=== PATIENT | female | born 1965 | race Caucasian/White ===

== ENCOUNTER → 2017-05-28 | Outpatient (CLI) | payer BC ==
[~2017-05-28] MED LIST: K-DUR20 MEQ PO; KENALOG0.1% TP; LEVOFLOXACIN500 MG PO; LUVOX CR150 MG PO; MIDRIN (DURADR1 CAP PO; PHENERGAN25 M1 PO; PRILOSEC20 MG PO; ULTRAM50 MG PO; VICODIN ES 7501 TAB PO; VOLTAREN75 MG PO
== END | disposition home or self-care (01) ==
LOC: RAD 13:47
DX: M25.511 Pain in right shoulder (principal); R20.2 Paresthesia of skin

== ENCOUNTER 2018-10-07 20:33 | Inpatient (IN) | payer BC ==
[~2018-10-07] VITALS: Ht 152.4 cm; Wt 78.6 kg
[2018-10-07] VITALS (10 sets, daily range): BP systolic 93–130; BP diastolic 32–75
--- NOTE | ~2018-10-07 | EKG ---
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
--- NOTE | ~2018-10-07 | EKG ---
[place], [place] ELECTROCARDIOGRAM REPORT NAME: BLAZE HE UNIT #: [id number] ROOM: 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
--- NOTE | ~2018-10-07 | EKG ---
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
[~2018-10-07 20:33] MED LIST changes: +VOLTAREN100 GM T; -VOLTAREN75 MG PO
[2018-10-07 21:40] LABS: BASO # 0.1 10*3/uL (0.0-0.1); BASO % 0.7 % (0.0-1.0); EOS % 0.2 % (1.0-4.0); HEMOGLOBIN 16.9 g/dl (12.0-16.0); LYMPH # 3.9 10*3/uL (1.3-4.4); LYMPH % 39.5 % (27.0-41.0); MEAN CELL VOLUME 89.3 fl (81.0-99.0); MEAN CORPUSCULAR HGB 30.2 pg (27.0-31.0); MEAN CORPUSCULAR HGB CONC 33.8 g/dl (33.0-37.0); MEAN PLATELET VOLUME 9.5 fl (9.6-12.3); MONO # 0.7 10*3/uL (0.1-1.0); MONO % 7.5 % (3.0-9.0); NEUT # 5.1 10*3/uL (2.3-7.9); NEUT % 51.7 % (47.0-73.0); PLATELET COUNT AUTOMATED 281 10*3/uL (130-400); RED CELL DISTRI WIDTH 13.2 % (0-14.5); WHITE BLOOD COUNT 9.8 10*3/uL (4.8-10.8)
[2018-10-07 21:56] LABS: ALBUMIN 3.4 gm/dl (3.1-4.5); ALKALINE PHOSPHATASE 142 U/L (45-117); BUN 13 mg/dl (7-24); CHLORIDE 102 mmol/L (98-107); CREATININE 0.72 mg/dL (0.55-1.02); LIPASE 186 U/L (73-393); POTASSIUM 3.7 mmol/L (3.5-5.1); SGOT/AST 21 IU/L (3-35); SGPT/ALT 32 U/L (12-78); SODIUM 138 mmol/L (136-145); TOTAL PROTEIN 7.6 gm/dL (6.4-8.2)
[2018-10-07 21:57] LABS: ACETAMINOPHEN (TYLENOL) < 5.0 ug/ml (10-30); TROPONIN I < 0.015 ng/ml (<0.045)
[2018-10-07 21:59] LABS: ACT PARTIAL THROMBO TIME 28.4 SECONDS (20.0-32.1)
[2018-10-07] MEDS ORDERED: IBU800 MG PO (23:24)
[2018-10-08] VITALS: BP 119/52
[2018-10-08 02:50] LABS: BILIRUBIN NEGATIVE (NEGATIVE); BLOOD 2+ (NEGATIVE); CLARITY CLEAR (CLEAR); COLOR YELLOW (YELLOW); GLUCOSE NEGATIVE (NEGATIVE); KETONE NEGATIVE (NEGATIVE); LEUKO ESTERASE NEGATIVE (NEGATIVE); NITRITE NEGATIVE (NEGATIVE); SPECIFIC GRAVITY 1.015 (1.005-1.030); UROBILINOGEN 0.2 E.U./dl (0.2-1.0)
[2018-10-08 02:59] LABS: URINE AMPHETAMINES < 1000 (1000ng/ml); URINE BARBITURATES < 200 (200ng/ml); URINE BENZODIAZEPINES < 200 (200ng/ml); URINE CANNABINOIDS (THC) < 50 (50ng/ml); URINE COCAINE < 300 (300ng/ml); URINE METHADONE < 300 (300ng/ml); URINE OPIATES < 300 (300ng/ml)
[2018-10-08 03:03] LABS: WBC 0-2 wbc/hpf (0-5)
[2018-10-08 03:07] LABS: URINE PHENCYCLIDINE < 25 (25ng/ml)
[2018-10-08 03:30] LABS: BASO # 0.1 10*3/uL (0.0-0.1); BASO % 0.5 % (0.0-1.0); EOS # 0.1 10*3/uL (0.0-0.4); EOS % 0.5 % (1.0-4.0); HEMATOCRIT 46.5 % (37.0-47.0); HEMOGLOBIN 15.7 g/dl (12.0-16.0); LYMPH # 3.6 10*3/uL (1.3-4.4); LYMPH % 27.5 % (27.0-41.0); MEAN CELL VOLUME 89.4 fl (81.0-99.0); MEAN CORPUSCULAR HGB 30.2 pg (27.0-31.0); MEAN CORPUSCULAR HGB CONC 33.8 g/dl (33.0-37.0); MEAN PLATELET VOLUME 9.6 fl (9.6-12.3); MONO % 7.8 % (3.0-9.0); NEUT # 8.3 10*3/uL (2.3-7.9); NEUT % 63.4 % (47.0-73.0); PLATELET COUNT AUTOMATED 282 10*3/uL (130-400); RED CELL DISTRI WIDTH 13.3 % (0-14.5); WHITE BLOOD COUNT 13.1 10*3/uL (4.8-10.8)
[2018-10-08 03:47] LABS: ALBUMIN 3.3 gm/dl (3.1-4.5); ALKALINE PHOSPHATASE 133 U/L (45-117); BUN 12 mg/dl (7-24); CHLORIDE 106 mmol/L (98-107); CHOLESTEROL 205 mg/dL (<200); CREATININE 0.68 mg/dL (0.55-1.02); HDL CHOLESTEROL 38 mg/dl (40-60); LDL CHOLESTEROL 89 mg/dL (9-159); PHOSPHOROUS 2.9 mg/dL (2.5-4.9); POTASSIUM 3.8 mmol/L (3.5-5.1); SGOT/AST 15 IU/L (3-35); SGPT/ALT 32 U/L (12-78); SODIUM 140 mmol/L (136-145); TOTAL PROTEIN 7.2 gm/dL (6.4-8.2); TRIGLYCERIDES 388 mg/dl (<150); VLDL CHOLESTEROL 78 mg/dL (6-40)
[2018-10-08 04:00] VITALS: BP 108/36
[2018-10-08 06:32] LABS: VITAMIN D, 25-HYDROXY 18.5 ng/mL (30-100)
[2018-10-08 08:00] VITALS: BP 122/68
[2018-10-08 12:00] VITALS: BP 144/85
[2018-10-08 16:00] VITALS: BP 149/75
[2018-10-08 20:00] VITALS: BP 139/66
[2018-10-09] VITALS: BP 130/60
[2018-10-09 04:00] VITALS: BP 156/79
[2018-10-09 05:30] LABS: BUN 13 mg/dl (7-24); CHLORIDE 109 mmol/L (98-107); CREATININE 0.62 mg/dL (0.55-1.02); POTASSIUM 3.5 mmol/L (3.5-5.1); SODIUM 141 mmol/L (136-145)
[2018-10-09 05:59] LABS: BASO # 0.1 10*3/uL (0.0-0.1); BASO % 0.8 % (0.0-1.0); EOS # 0.1 10*3/uL (0.0-0.4); EOS % 1.5 % (1.0-4.0); HEMATOCRIT 44.1 % (37.0-47.0); HEMOGLOBIN 14.5 g/dl (12.0-16.0); LYMPH # 2.8 10*3/uL (1.3-4.4); MEAN CELL VOLUME 91.1 fl (81.0-99.0); MEAN CORPUSCULAR HGB CONC 32.9 g/dl (33.0-37.0); MEAN PLATELET VOLUME 10.1 fl (9.6-12.3); MONO # 0.8 10*3/uL (0.1-1.0); MONO % 10.7 % (3.0-9.0); NEUT # 3.5 10*3/uL (2.3-7.9); NEUT % 48.7 % (47.0-73.0); PLATELET COUNT AUTOMATED 243 10*3/uL (130-400); RED BLOOD COUNT 4.84 10*6/uL (4.10-5.10); RED CELL DISTRI WIDTH 13.2 % (0-14.5); WHITE BLOOD COUNT 7.2 10*3/uL (4.8-10.8)
[2018-10-09 08:00] VITALS: BP 149/76
[2018-10-09] MEDS ORDERED: VITAMIN D5000 UNI1 PO (11:28)
[2018-10-09] MEDS ORDERED: PHARMASSURE FO0.4 MG PO (11:28)
== END 2018-10-09 12:04 | disposition home or self-care (01) | DRG 918 ==
LOC: ED 20:33 → EDHOLD 22:16 → ICCU 22:16
PROVIDERS: Emergency Medicine Emergency Medical Services; Student in an Organized Health Care Education/Training Program; ADMIT Internal Medicine
DX: T42.4X2A Poisoning by benzodiazepines, intentional self-harm, initial encounter (principal); E87.2 Acidosis; J98.11 Atelectasis; R65.10 Systemic inflammatory response syndrome (SIRS) of non-infectious origin without acute organ dysfunction; R45.851 Suicidal ideations; F33.9 Major depressive disorder, recurrent, unspecified; T51.92XA Toxic effect of unspecified alcohol, intentional self-harm, initial encounter; E83.41 Hypermagnesemia; R06.82 Tachypnea, not elsewhere classified; R73.9 Hyperglycemia, unspecified; F10.929 Alcohol use, unspecified with intoxication, unspecified; F17.210 Nicotine dependence, cigarettes, uncomplicated; G43.909 Migraine, unspecified, not intractable, without status migrainosus; E87.8 Other disorders of electrolyte and fluid balance, not elsewhere classified; Y92.89 Other specified places as the place of occurrence of the external cause; Z91.5 Personal history of self-harm; Z98.51 Tubal ligation status; Z83.3 Family history of diabetes mellitus; Z82.49 Family history of ischemic heart disease and other diseases of the circulatory system; Z80.8 Family history of malignant neoplasm of other organs or systems; Z71.6 Tobacco abuse counseling; Z79.899 Other long term (current) drug therapy

== ENCOUNTER 2023-06-11 09:09 | Emergency (ER) | payer SELFPAY ==
[~2023-06-11] VITALS: Ht 152.4 cm; Wt 89.8 kg
[~2023-06-11 09:09] MED LIST changes: +IBU800 MG PO; +PHARMASSURE FO0.4 MG PO; +VITAMIN D5000 UNI1 PO
[2023-06-11] MEDS ORDERED: WELLBUTRIN SR150 MG PO (09:21)
[2023-06-11 09:49] LABS: BASO # 0.1 10*3/uL (0.0-0.1); BASO % 0.9 % (0.0-1.0); EOS # 0.2 10*3/uL (0.0-0.4); EOS % 2.4 % (1.0-4.0); HEMATOCRIT 46.3 % (37.0-47.0); LYMPH # 2.5 10*3/uL (1.3-4.4); LYMPH % 32.5 % (27.0-41.0); MEAN CELL VOLUME 88.4 fl (81.0-99.0); MEAN CORPUSCULAR HGB 28.4 pg (27.0-31.0); MEAN CORPUSCULAR HGB CONC 32.2 g/dl (33.0-37.0); MEAN PLATELET VOLUME 9.4 fl (9.6-12.3); MONO % 12.3 % (3.0-9.0); NEUT % 51.5 % (47.0-73.0); PLATELET COUNT AUTOMATED 270 10*3/uL (130-400); RED BLOOD COUNT 5.24 10*6/uL (4.10-5.10); RED CELL DISTRI WIDTH 13.5 % (0-14.5); WHITE BLOOD COUNT 7.8 10*3/uL (4.8-10.8)
[2023-06-11] MEDS ORDERED: MUPIROCIN 15 GM TUBE T ONE (09:55)
[2023-06-11] MEDS ORDERED: CLINDAMYCIN HCL 300 MG CAPSULE PO ONE (09:55)
[2023-06-11] MEDS ORDERED: Amoxicillin/Clavulanate Pota 875 MG TAB PO ONE (09:55)
[2023-06-11 10:05] LABS: BUN 16 mg/dl (9-23); CHLORIDE 105 mmol/L (98-107)
[2023-06-11] MEDS ORDERED: AMOX-CLAV 875-1 EACH PO (10:50)
[2023-06-11] MEDS ORDERED: CLINDAMYCIN HC300 MG PO (10:50)
== END 2023-06-11 11:02 | disposition home or self-care (01) ==
LOC: ED 09:09
PROVIDERS: Nurse Practitioner
DX: L03.211 Cellulitis of face (principal); L03.213 Periorbital cellulitis; G43.909 Migraine, unspecified, not intractable, without status migrainosus; Z98.51 Tubal ligation status; Z98.890 Other specified postprocedural states; F17.200 Nicotine dependence, unspecified, uncomplicated